=== PATIENT | female | born 1975 | race Caucasian/White ===

== ENCOUNTER 2019-02-20 12:11 | Emergency (ER) | payer SELFPAY ==
[~2019-02-20] VITALS: Ht 162.6 cm; Wt 63.6 kg
[2019-02-20 12:16] VITALS: Ht 162.6 cm; Wt 63.6 kg
[2019-02-20 14:27] VITALS: BP 115/74
== END 2019-02-20 14:28 | disposition home or self-care (01) ==
LOC: D.ER 12:11
DX: S09.90XA Unspecified injury of head, initial encounter (principal); W22.8XXA Striking against or struck by other objects, initial encounter; J45.990 Exercise induced bronchospasm